=== PATIENT | female | born 1990 | race Caucasian/White ===

== ENCOUNTER → 2017-12-10 | Outpatient (CLI) | payer BC ==
[~2017-12-10] MED LIST: GADAVIST IV PRN; PRENTAB26 PO
--- NOTE | 2017-12-10 09:03 | DIAGNOSTIC IMAGING REPORT ---
BRAIN COMBO HISTORY: 27 years-old Female R51 acute on chronic headaches, progressively worsened over the past several months. 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 The midline structures including the corpus callosum, brainstem, optic chiasm, pituitary and pineal glands appear unremarkable on the sagittal T1 series. No cerebellar tonsillar herniation. Mild hyperplasia of the adenoid tonsils. The imaged cervical spine appears unremarkable. There is no restricted diffusion to suggest acute or subacute infarction. There is no acute intracranial hemorrhage, midline shift, abnormal extra-axial collections, hydrocephalus or intracranial mass. No significant T2/FLAIR parenchymal signal abnormalities identified. There is no abnormal intra-axial or extra-axial enhancement. The major flow voids appear patent. Orbits are symmetric and within normal limits. Mastoid air cells are clear. Minimal mucosal thickening about the ethmoid air cells. The skull soft tissues are within normal limits. IMPRESSION: 1. No acute intracranial abnormality. 2. No abnormal enhancement. The above report was generated using voice recognition software. It may contain grammatical, syntax or spelling errors. Electronically signed by: Vitaliy Steel M.D. 12/10/2017 9:01 AM Dictated Date/Time: 12/10/2017 8:58 AM
== END | disposition home or self-care (01) ==
LOC: C.MRIBC 08:04
PROVIDERS: ATTEND Psychiatry & Neurology Neurology
DX: R51 Headache (principal)

== ENCOUNTER 2019-07-11 07:37 | Inpatient (IN) ==
[2019-07-11] MEDS ORDERED: OXYTOCIN 30 UNITS/500 ML BAG IV PRN ×3 (07:43→20:18)
[2019-07-11 08:05] LABS: Hematocrit (blood only) 33.8 % (37-47); Hemoglobin 11.9 g/dL (12.0-16.0); Mean Corpuscular Hemoglobin 30.7 pg (25-34); Mean Corpuscular Volume 87.3 fL (80-100); Mean Platelet Volume 10.8 fL (7.4-10.4); Platelet Count 185 K/uL (130-400); RDW Coefficient of Variation 13.4 % (11.5-14.5); RDW Standard Deviation 42.6 fL (36.4-46.3); Red Blood Count 3.87 M/uL (4.2-5.4); White Blood Count 9.63 K/uL (4.8-10.8)
[2019-07-11] MEDS: LACTATED RINGER'S 1,000 ML IV PRN ×3 (08:06→17:04)
[2019-07-11 08:13] LABS: Mean Corpuscular Hgb Conc 35.2 g/dL (32-36)
--- NOTE | 2019-07-11 11:27 | History & Physical Report ---
Date of Service July 11, 2019 Assessment & Plan (1) : Ms. Titus is a 28 y/o female at 40w5d; presenting for induction of labor Induction of Labor: - admit to L&D - FHT 150s, not currently feeling contractions, no loss of fluid, no bleeding - had fully balloon placed 07/10 - Cervix 3-4cm - estimated weight 7lbs - started on Pitocin 2 with progression by 2 every 30 minutes History of Present Illness Primary Care Provider: Iftikhar Yeboah MD Ms. Titus is a 28 y/o female at 40w5d; presenting for induction of labor; no complications with this . frequently attended OB appointments; no contractions; good movement; no fluid loss; no vaginal blood loss Labs: (11/21/18) Blood type: O+ Antibody screen: negative Rubella: positive VDRL/RPR: negative Gonorrhea: negative Chlamydia: negative HIV: non-reactive HbSAg: negative GBS negative passed Glucose tolerance 04/14/19 Allergies Allergy/AdvReac Type Severity Reaction Status Date / Time No Known Allergies Allergy Verified 07/10/19 07:18 Home Medications Home Medications Medication Instructions Recorded Confirmed Type prenat.vits,kevin,uwe-ucpf-yamem 1 tab PO DAILY 12/10/18 07/11/19 History Patient History Medical History (Updated 07/04/19 @ 11:34 by Chintan Venegas Jr, MD, FACOG) H/O prolonged H/O varicella H/O: depression Normal labor Post-dates Surgical History (Updated 12/16/18 @ 09:40 by Peri Reid) History of oral surgery S/P foot surgery Family History (Updated 12/16/18 @ 09:42 by Peri Reid) Grandmother Breast cancer Other AA (alcohol abuse) Myocardial infarction Ovarian cyst Denies family history of Ovarian cancer Prostate cancer Colorectal cancer Social History (Updated 12/16/18 @ 09:43 by Peri Reid) Preferred Language: Kinyarwanda Beliefs That Will Affect Care: None marital status: Current Living Situation: Spouse and Family Current Living Situation Comment: two children current occupational status: employed Feels Safe at Home: Yes Smoking Status: Never smoker Second Hand Exposure: No ; Hx Alcohol Use: No Hx Substance Use: No Childhood Exposure to Second-Hand Smoke: No Dental Care, Regularly: Yes Physical Activity Frequency: 3-4 Times per Week Review of Systems Constitutional: denies fever; chills; sweats; headache Respiratory: denies shortness of breath, difficulty breathing Cardiac: denies chest pain; palpitations; chest pressure Breast: denies breast pain : denies dysuria Physical Exam Physical Exam: General: alert; oriented; no acute distress Cardiac: RRR; no m/g/r Respiratory: CTAB a/p; no wheezes/rales/rhonchi; no increased work of breathing; symmetrical chest rise; no respiratory distress Abdomen: soft; NT/ND; bowel sounds positive Lower extrem: no lower extremity edema or swelling; no deep calf pain; Sanjana's sign negative b/l Genitourinary: Manual OB Exam: + cervical dilation (3-4cm as performed by Dr. Avery), + cervical effacement (as performed by Dr. Avery) 80% and + station (as performed by Dr. Avery) -2 OB Exam Monitor Tracing: + external FHT monitor used, + external uterine monitor used, + category I and + normal FHT variability estimated weight 7lbs Results & Data Vital Signs (Past 12 Hours) Vital Signs Temp Pulse Resp BP 07/11/19 11:02 18 07/11/19 10:27 81 119/68 07/11/19 10:26 18 07/11/19 10:00 18 07/11/19 09:11 74 117/67 07/11/19 09:10 18 07/11/19 08:40 18 07/11/19 07:47 36.9 C 88 20 109/68 Laboratory Results 07/11/19 Range/Units 07:51 WBC 9.63 (4.8-10.8) K/uL RBC 3.87 L (4.2-5.4) M/uL Hgb 11.9 L (12.0-16.0) g/dL Hct 33.8 L (37-47) % MCV 87.3 (80-100) fL MCH 30.7 (25-34) pg MCHC 35.2 (32-36) g/dL RDW Std Deviation 42.6 (36.4-46.3) fL RDW Coeff of Christian 13.4 (11.5-14.5) % Plt Count 185 (130-400) K/uL MPV 10.8 H (7.4-10.4) fL Medications Administered Current Inpatient Medications Lactated Ringer's (Lr) 1,000 mls @ 125 mls/hr IV .Q8H PRN; Protocol PRN Reason: L&D Protocol Stop: 07/13/19 07:42 Last Admin: 07/11/19 08:06 Dose: 125 mls/hr Documented by: Oxytocin (Pitocin) 30 units in 500 mls @ 333.333 mls/hr IV .Q1H30M PRN; Protocol PRN Reason: Bleeding Control Stop: 08/10/19 07:42 Oxytocin (Pitocin) 30 units in 500 mls @ 13 mls/hr IV .Q24H PRN; Protocol PRN Reason: Labor Induction/Augmentation Stop: 07/13/19 07:44 Last Titration: 07/11/19 11:29 Dose: 0.78 units/hr, 13 mls/hr Documented by: Code Status & VTE Plan VTE Prophylaxis Plan VTE Prophylaxis will be ordered: No Supervising Physician Co-Signing Physician Notes Resident Physician Supervision Note: I interviewed and examined the patient. Discussed with Dr. Vasquez and agree with findings and plan as documented in the note. Any exceptions or clarifications are listed here: [None] Documented By: Claudia Last MD, FACOG Coding Level of Care Code None Diagnoses Z34.90 Resident Activity Tracking Resident Involvement: Resident Care Provided Care Provided: OB Delivery
[2019-07-11] MEDS ORDERED: fentaNYL citrate 100 MCG/2 ML VIAL ONE (16:15)
[2019-07-11] MEDS ORDERED: fentaNYL 2MCG/ML ROPIV 1.25MG/ML 100 ML BAG EPI ONE (16:16)
[2019-07-11] MEDS ORDERED: BUPIVACAINE 0.25% 30 ML VIAL ONE (16:16)
[2019-07-11] MEDS ORDERED: ePHEDrine sulfate 50 MG/ML AMP ONE (16:16)
--- NOTE | 2019-07-11 17:23 | Anesthesiology Consultation ---
Date of Service July 11, 2019 Assessment & Plan (1) Encounter for pre-operative examination: Chart Review Chart Review: Patient NOT seen in Pre Admission Testing and Acceptable Risk for Labor Epidural Consults Requested none ASA ASA2 Proposed Anesthesia Anesthesia Type: Labor Epidural Risk / Benefits Reviewed With: PT / POA / Parent / Guardian, Accepts Plan and Informed Consent Obtained History Height/Weight Height: 5 ft 5 in Weight: 91.989 kg Allergies Allergy/AdvReac Type Severity Reaction Status Date / Time No Known Allergies Allergy Verified 07/10/19 07:18 Medications Home Medications Medication Instructions Recorded Confirmed Last Taken prenat.vits,kevin,gzl-ybfa-ladrd 1 tab PO DAILY 12/10/18 07/11/19 07/10/19 09:00 Active Medications Generic Name Dose Route Start Last Admin Trade Name Freq PRN Reason Stop Dose Admin Lactated Ringer's 1,000 mls @ 125 mls/hr 07/11/19 07:43 07/11/19 17:07 Lr IV 07/13/19 07:42 125 mls/hr .Q8H PRN Infusion L&D Protocol Protocol Oxytocin 30 units in 500 mls @ 17 mls/hr 07/11/19 07:45 07/11/19 14:49 Pitocin IV 07/13/19 07:44 1.02 units/hr .Q24H PRN 17 mls/hr Labor Induction/Augmentation Titration Protocol 1.02 UNITS/HR Past Medical History Medical History H/O prolonged H/O varicella H/O: depression Normal labor Post-dates Exercise / Class Metabolic Activity II 4-5 Yardwork/Stairs/Walk up hill Past Family History Family History Grandmother Breast cancer Other AA (alcohol abuse) Myocardial infarction Ovarian cyst Denies family history of Ovarian cancer Prostate cancer Colorectal cancer Past Surgical History Surgical History History of oral surgery S/P foot surgery Past Anesthesia History No Hx of Anesthesia Complications and No Family Hx of Anesthesia Complications History of PONV No Hx of PONV and No Hx of Motion Sickness Social History Smoking Status: Never smoker Hx Alcohol Use: No Hx Substance Use: No Physical Exam Vital Signs Last Vital Signs Temp 36.7 C 07/11/19 16:38 Pulse 70 07/11/19 17:20 Resp 18 07/11/19 16:38 BP 114/73 07/11/19 17:20 Pulse Ox 97 07/11/19 17:18 ENMT Mouth: no dentition abnormality Thyromental Distance: > or= 3.5 Finger Breadths Mallampati Class: II Neck normal visual inspection Respiratory normal respiratory effort Auscultation: lungs clear to auscultation bilaterally Cardiovascular Rate/Rhythm: regular rate and regular rhythm Psychiatric Orientation: alert Testing Laboratory Results 07/11/19 07:51
[2019-07-11] MEDS ORDERED: ePHEDrine sulfate 50 MG/ML AMP IV PRN (17:24)
[2019-07-11] MEDS ORDERED: NALOXONE HCL 1 MG in SODIUM CHLORIDE 0.9% 1000ML 1,000 ML IV PRN (17:24)
[2019-07-11] MEDS ORDERED: ONDANSETRON INJ 2 MG/ML 2 ML VIAL IV PRN (17:24)
[2019-07-11] MEDS ORDERED: DiphenhydrAMINE HCL 50 MG/ML VIAL IV PRN (17:24)
[2019-07-11] MEDS ORDERED: NALBUPHINE HCL INJ 10 MG/ML AMP IV PRN (17:24)
[2019-07-11] MEDS ORDERED: fentaNYL 2MCG/ML ROPIV 1.25MG/ML 100 ML BAG EPI PRN (17:24)
[2019-07-11] MEDS ORDERED: NALOXONE HCL 0.4 MG/1 ML VIAL/CARP IV PRN (17:24)
[2019-07-11] MEDS ORDERED: PROMETHAZINE HCL 6.25 MG in SODIUM CHLORIDE 0.9% 50 ML IV PRN (17:24)
[2019-07-11] MEDS ORDERED: bisacodyL 10 MG SUPP PR PRN (20:18)
[2019-07-11] MEDS ORDERED: ACETAMINOPHEN 325 MG TAB PO PRN (20:18)
[2019-07-11] MEDS ORDERED: HYDROCORTISONE ACETATE 25 MG SUPP PR PRN (20:18)
[2019-07-11] MEDS ORDERED: OXYCODONE/ACETAMINOPHEN 5mg/325mg TAB PO PRN (20:18)
[2019-07-11] MEDS ORDERED: SUPERCREAM 0.870% 15 GM JAR EXT PRN (20:18)
[2019-07-11] MEDS ORDERED: BENZOCAINE 20% AER SPR 82.5 GM CAN EXT PRN (20:18)
[2019-07-11] MEDS ORDERED: DIPHTHERIA/TETANUS/PERTUSSIS 0.5 ML SYR/VIAL IM ONE (20:18)
[2019-07-11] MEDS: DOCUSATE SODIUM 100 MG CAP PO SCH (23:30)
[2019-07-11] MEDS: IBUPROFEN 600 MG TAB PO PRN (23:53)
--- NOTE | 2019-07-12 00:36 | Delivery Summary ---
DATE OF OPERATION: 07/11/2019 The patient is a 28-year-old 2, para 1-0-0-1 white female who presents at 40 and 5/7 weeks for induction because of post-term . She received a cervical balloon for mechanical dilation on 07/10/2019. She represented to labor and delivery on the morning of 07/11/2019 for further induction protocol. She was begun on Pitocin augmentation. She progressed to 5 cm and membranes were ruptured for clear fluid. She received effective epidural analgesia. She progressed to full dilation and pushed effectively over intact perineum for delivery of a viable male . Mouth and nasopharynx were suctioned after the infant was placed on the mother's abdomen. After the head was delivered, the rest of the delivered easily. The was moving all 4 limbs and had good respiratory effort. Cord was clamped and cut after 1 minute. After cord blood was obtained, the placenta was expressed intact with a 3-vessel cord. A second-degree perineal laceration was repaired with 3-0 chromic in the usual fashion. Estimated blood loss was 300 mL. bleeding was controlled with IV Pitocin. Mother and were doing well after delivery. I attest to the content of the Intraoperative Record and any orders documented therein. Any exception s are noted below.
--- NOTE | 2019-07-12 03:44 | Anesthesia Procedure Note ---
Date of Service July 12, 2019 Anesthesia Post Epidural Note Vital Signs Vital Signs: Temp Pulse Resp BP Pulse Ox 36.8 C 77 18 101/60 98 07/11/19 23:30 07/11/19 23:30 07/11/19 23:30 07/11/19 23:30 07/11/19 19:53 Pain Intensity Abdomen: Pain Intensity: 0 Bilateral Episiotomy/Laceration: Pain Intensity: 3 Notes Mental Status: alert / awake / arousable Nausea / Vomiting: adequately controlled Pain: adequately controlled Airway Patency, RR, SpO2: stable & adequate BP & HR: stable & adequate Hydration State: stable & adequate Neuraxial Anesthesia: was administered and sensory block is resolving Anesthetic Complications: no major complications apparent and Pt Satisfied with anesthetic care Epidural: Removed without complications and With tip intact
[2019-07-12] MEDS: IBUPROFEN 600 MG TAB PO PRN ×4 (04:43→16:31)
[2019-07-12 05:27] LABS: Basophils # (auto) 0.01 K/uL (0-0.2); Basophils % (auto) 0.1 %; Eosinophils # (auto) 0.13 K/uL (0-0.5); Hematocrit (blood only) 29.9 % (37-47); Hemoglobin 10.3 g/dL (12.0-16.0); Immature Granulocytes # (auto) 0.04 K/uL (0.00-0.02); Immature Granulocytes % (auto) 0.3 %; Lymphocytes # (auto) 2.65 K/uL (1.2-3.4); Lymphocytes % (auto) 20.2 %; Mean Corpuscular Hemoglobin 30.4 pg (25-34); Mean Corpuscular Volume 88.2 fL (80-100); Mean Platelet Volume 10.4 fL (7.4-10.4); Monocytes # (auto) 0.79 K/uL (0.11-0.59); Neutrophils # (auto) 9.47 K/uL (1.4-6.5); Neutrophils % (auto) 72.4 %; Platelet Count 175 K/uL (130-400); RDW Coefficient of Variation 13.2 % (11.5-14.5); RDW Standard Deviation 42.9 fL (36.4-46.3); Red Blood Count 3.39 M/uL (4.2-5.4); White Blood Count 13.09 K/uL (4.8-10.8)
[2019-07-12 05:29] LABS: Mean Corpuscular Hgb Conc 34.4 g/dL (32-36)
[2019-07-12 05:43] LABS: Creatinine Clr Calc Pharmacy 132.9 ml/min; Est GFR (African American) 135.7; Est GFR (Non-African American) 117.1
--- NOTE | 2019-07-12 06:24 | Obstetrical Progress Note ---
Date of Service <Micheal Vasquez MD - Last Filed: 07/12/19 06:58> July 12, 2019 Assessment & Plan <Micheal Vasquez MD - Last Filed: 07/12/19 06:58> (1) : PPD#1 - continue routine care - encourage ambulation and oral intake - after discharge will have follow-up in 6 weeks Subjective <Micheal Vasquez MD - Last Filed: 07/12/19 06:58> Ms. Titus is a 28 y/o female ; PPD #1 following spontaneous vaginal delivery; doing well this morning; having some mild abdominal cramping/pain with breast feeding; voiding well; some persistent spotting with intermittent improvement this morning. Review of Systems Constitutional: denies fever; chills; sweats; headache Respiratory: denies shortness of breath, difficulty breathing Cardiac: denies chest pain; palpitations; chest pressure Breast: denies breast pain : denies dysuria Physical Exam <Micheal Vasquez MD - Last Filed: 07/12/19 06:58> General: alert; oriented; no acute distress Cardiac: RRR; no m/g/r Respiratory: CTAB a/p; no wheezes/rales/rhonchi; no increased work of breathing; symmetrical chest rise; no respiratory distress Abdomen: soft; NT/ND; bowel sounds positive Uterus: uterine fundus firm; palpable 1cm below umbilicus Lower extrem: no lower extremity edema or swelling; no deep calf pain; Sanjana's sign negative b/l Results & Data <Micheal Vasquez MD - Last Filed: 07/12/19 06:58> Vital Signs (Past 12 Hours) Vital Signs Temp Pulse Pulse Resp BP BP Pulse Ox 07/12/19 04:00 36.9 C 70 18 110/67 07/11/19 23:30 36.8 C 77 18 101/60 07/11/19 22:28 80 114/63 07/11/19 21:46 94 H 121/71 07/11/19 21:16 104 H 132/67 07/11/19 21:02 87 146/59 H 07/11/19 20:45 18 07/11/19 20:31 77 110/68 07/11/19 20:30 18 07/11/19 20:15 18 07/11/19 20:01 88 117/58 L 07/11/19 19:54 18 07/11/19 19:53 89 98 07/11/19 19:50 89 89 L 07/11/19 19:48 91 H 97 07/11/19 19:47 86 115/71 07/11/19 19:43 87 98 07/11/19 19:38 82 97 07/11/19 19:33 97 H 97 07/11/19 19:30 36.8 C 18 07/11/19 19:28 84 97 07/11/19 19:23 89 97 07/11/19 19:18 88 96 07/11/19 19:16 83 97/59 L 07/11/19 19:15 36.8 C 18 07/11/19 19:13 86 97 07/11/19 19:12 89 90 07/11/19 19:08 82 96 07/11/19 19:03 83 97 07/11/19 19:01 80 96/59 L 07/11/19 18:58 78 96 07/11/19 18:53 92 H 97 07/11/19 18:48 87 95 07/11/19 18:46 89 94/56 L 07/11/19 18:43 76 96 07/11/19 18:38 88 97 07/11/19 18:33 86 93/56 L 96 07/11/19 18:28 83 97 Laboratory Results 07/12/19 07/12/19 07/11/19 Range/Units 05:14 05:14 07:51 WBC 13.09 H 9.63 (4.8-10.8) K/uL RBC 3.39 L 3.87 L (4.2-5.4) M/uL Hgb 10.3 L 11.9 L (12.0-16.0) g/dL Hct 29.9 L 33.8 L (37-47) % MCV 88.2 87.3 (80-100) fL MCH 30.4 30.7 (25-34) pg MCHC 34.4 35.2 (32-36) g/dL RDW Std Deviation 42.9 42.6 (36.4-46.3) fL RDW Coeff of Christian 13.2 13.4 (11.5-14.5) % Plt Count 175 185 (130-400) K/uL MPV 10.4 10.8 H (7.4-10.4) fL Immature Gran % (Auto) 0.3 % Neut % (Auto) 72.4 % Lymph % (Auto) 20.2 % [place] % (Auto) 6.0 % Eos % (Auto) 1.0 % Baso % (Auto) 0.1 % Immature Gran # (Auto) 0.04 H (0.00-0.02) K/uL Neut # (Auto) 9.47 H (1.4-6.5) K/uL Lymph # (Auto) 2.65 (1.2-3.4) K/uL [place] # (Auto) 0.79 H (0.11-0.59) K/uL Eos # (Auto) 0.13 (0-0.5) K/uL Baso # (Auto) 0.01 (0-0.2) K/uL Creatinine 0.70 (0.6-1.2) mg/dl Est Cr Clr Drug Dosing 132.9 ml/min Est GFR ( Amer) 135.7 Est GFR (Non-Af Amer) 117.1 AST 18 (15-37) U/L ALT 14 (12-78) U/L Medications Administered Current Inpatient Medications Acetaminophen (Tylenol) 650 mg PO Q6H PRN PRN Reason: Pain/CRAIG/Fever Stop: 08/10/19 20:17 Benzocaine (Dermoplast Pain Relieving [place]) 1 appln EXT PRN PRN PRN Reason: Perineal Discomfort Stop: 08/10/19 20:17 Last Admin: 07/11/19 22:46 Dose: 1 appln Documented by: Bisacodyl (Dulcolax) 5 mg PO 1999 ILEANA Stop: 07/12/19 20:01 Bisacodyl (Dulcolax) 10 mg AK DAILY PRN PRN Reason: No BM on 2nd post- day Stop: 08/10/19 20:17 Cocaine HCl (Supercream 0.870%) 1 gm EXT BID PRN PRN Reason: Hemorrhoidal Inflammation Stop: 07/25/19 20:17 Diphenhydramine HCl (Benadryl) 25 mg IV Q6H PRN PRN Reason: Itching Stop: 07/12/19 17:23 Docusate Sodium (Colace) 100 mg PO DAILY@08,21 ILEANA Stop: 08/10/19 20:59 Last Admin: 07/11/19 23:30 Dose: Not Given Documented by: Ephedrine Sulfate (Ephedrine Sulfate) 10 mg IV Q5M PRN PRN Reason: Hypotension Stop: 07/12/19 17:23 Hydrocortisone (Anusol Hc) 25 mg AK BID PRN PRN Reason: Hemorrhoidal Inflammation Stop: 08/10/19 20:17 Lactated Ringer's (Lr) 1,000 mls @ 125 mls/hr IV .Q8H PRN; Protocol PRN Reason: L&D Protocol Stop: 07/13/19 07:42 Last Infusion: 07/11/19 21:00 Dose: Infused Documented by: Oxytocin (Pitocin) 30 units in 500 mls @ 333.333 mls/hr IV .Q1H30M PRN; Protocol PRN Reason: Bleeding Control Stop: 08/10/19 07:42 Oxytocin (Pitocin) 30 units in 500 mls @ 0 mls/hr IV .Q0M PRN; Protocol PRN Reason: Labor Induction/Augmentation Stop: 07/13/19 07:44 Last Titration: 07/11/19 21:00 Dose: 0 units/hr, 0 mls/hr Documented by: Promethazine HCl 6.25 mg/ (Sodium Chloride) 50.25 mls @ 204 mls/hr IV Q6H PRN PRN Reason: Nausea And Vomiting Stop: 07/12/19 17:23 Naloxone HCl 1 mg/ Sodium (Chloride) 1,002.5 mls @ 50 mls/hr IV .Q20H3M PRN PRN Reason: itching or nausea Stop: 07/12/19 17:23 Oxytocin (Pitocin) 30 units in 500 mls @ 333.333 mls/hr IV .Q1H30M PRN; Protocol PRN Reason: Bleeding Control Stop: 08/10/19 20:17 Ibuprofen (Motrin) 600 mg PO Q4H PRN PRN Reason: Pain/CRAIG/Cramping/Fever Stop: 08/10/19 20:17 Last Admin: 07/12/19 04:43 Dose: 600 mg Documented by: Nalbuphine HCl (Nubain) 5 mg IV Q10M PRN PRN Reason: itching or nausea Stop: 07/12/19 17:23 Naloxone HCl (Narcan) 0.1 mg IV UD PRN PRN Reason: Respiratory Depression Stop: 07/12/19 17:23 Ondansetron HCl (Zofran) 4 mg IV Q6H PRN PRN Reason: Nausea And Vomiting Stop: 07/12/19 17:23 Oxycodone/Acetaminophen (Percocet 5mg/325mg) 1 tab PO Q4H PRN PRN Reason: Pain not relieved by... Stop: 07/25/19 20:17 Prenat Multivit/Dickinson/Iron/Folic Ac ( Vitamin) 1 tab PO DAILY@08 ILEANA Stop: 08/11/19 07:59 Ropivacaine (Epidural (L&D)) 100 ml EPI PRN PRN; Protocol PRN Reason: Pain R/T Labor Stop: 07/12/19 17:23 <Claudia Last MD, FACOG - Last Filed: 07/12/19 07:51> Co-Signing Physician Notes Resident Physician Supervision Note: I interviewed and examined the patient. Discussed with Dr. Vasquez and agree with findings and plan as documented in the note. Any exceptions or clarifications are listed here: [None] Documented By: Claudia Last MD, FACOG Resident Activity Tracking <Micheal Vasquez MD - Last Filed: 07/12/19 06:58> Resident Involvement: Resident Care Provided Care Provided: OB Delivery
[2019-07-12] MEDS: PRENATAL VITAMIN 1 TAB PO SCH (08:31)
[2019-07-12] MEDS: DOCUSATE SODIUM 100 MG CAP PO SCH ×2 (08:31→19:51)
[2019-07-12] MEDS ORDERED: bisacodyL 5 MG TABEC PO SCH (20:00)
[2019-07-13] MEDS: IBUPROFEN 600 MG TAB PO PRN ×2 (00:27→08:25)
[2019-07-13 06:51] LABS: Hematocrit (blood only) 28.7 % (37-47); Hemoglobin 9.8 g/dL (12.0-16.0)
[2019-07-13] MEDS: DOCUSATE SODIUM 100 MG CAP PO SCH (08:25)
[2019-07-13] MEDS: PRENATAL VITAMIN 1 TAB PO SCH (08:25)
--- NOTE | 2019-07-13 08:41 | Obstetrical Progress Note ---
Date of Service July 13, 2019 Assessment & Plan (1) Encounter for supervision of normal in multigravida: PPD 2 . Doing well. Stable for discharge Subjective Ambulation: ambulating normally Voiding: no voiding problems Passing Gas:: Yes Diet Tolerance:: regular diet Lochia:: Moderate Feeding Type:: breast feeding Physical Exam Constitutional WD/WN, vitals as above Respiratory normal respiratory effort; no respiratory distress and no labored breathing Gastrointestinal (Abdomen) Inspection/Auscultation: abdomen normal to inspection; abdomen not distended Percussion/Palpation: abdomen soft; abdomen nontender, no guarding and abdomen not rigid Genitourinary OB Exam Abdomen: + fundal height Fundus: + firm and + relation to umbilicus (Below); not tender and not boggy Results & Data Vital Signs (Past 12 Hours) Vital Signs Temp Pulse Resp BP 07/13/19 00:00 36.4 C L 75 18 127/72
== END 2019-07-13 12:21 | disposition home or self-care (01) | DRG 807 ==
LOC: 4S1 07:37 → 4S2 23:10